=== PATIENT | female | born 1995 | race Caucasian/White ===

== ENCOUNTER 2016-11-06 21:02 | Inpatient (IN) | payer MEDICAID ==
[~2016-11-06 21:02] MED LIST: ACETIC ACID; ACETIC ACID15 M1 IR; ADAPALENE45 G2 TP; ADVIL100 M3 PO; ALLERGY EYE DRO10 M1 OP; ALOE VESTA141 GM; ALOE VESTA141 GM TP; AMOXICILLI400 MG/5 M PO; ANTACID ULTRA1177 MG GT; ANTI-ITCH28 GM TP; APAP160 MG/5 M GT; ARTIFICIAL TEAR15 M3 OP; ATARAX10 MG/5 ML; ATIVAN2 M1 PO; ATIVAN2 MG GT; ATIVAN2 MG/1 ML GB; ATIVAN2 MG/M1 GT; AUGMENTIN SUSP100 M1 GT; AYR SALINE NASA14 GM; BACLOFEN PUMP; BACTRIM DS1 TA1 GT; BACTRIM DS1 TA1 PO; BACTRIM DS1 TAB GT; BACTROBAN TP; BACTROBAN15 GM TP; BACTROBAN22 GM; BACTROBAN22 GM TP; BENADRYL25 MG/10 M GT; BOOST HIGH PRO237 ML GB; BOTOX; CALCIFEROL8000 U/ML GB; CALCIFEROL8000 U/ML GT; CALCIUM CA500 MG/5 M GT; CEFTRIAXONE2 GM IV; CELEBREX100 M1 GB; CELEBREX100 MG; CELEBREX100 MG GT; CELEBREX100 MG PO; CHILD IBUP100 MG/5 M GT; CHILDREN'S100 MG/55 GT; CLARITIN10 M2 GT; CLARITIN5 MG/5 M2 GB; CLARITIN5 MG/5 ML GT; DEPO-PROVE150 MG/1 M IM; DEPO-PROVER150 MG/ML; DEPO-PROVER150 MG/ML IM; DERMOLATE ANTI-I2 GM TP; DEXTROSTAT5 MG; DEXTROSTAT5 MG GT; DIFFERIN TP; ELOCON TP; ELOCON15 GM TP; EMLA TP; EYE ITCH RELIEF EACH EYE; FLEET ENEMA118 ML; FLEET ENEMA118 ML RC; FLEET ENEMA133 ML PR; FURADANTIN GT; GARAMYCIN GB; GARAMYCIN3.5 G1 OP; GARAMYCIN3.5 GM OP; GARAMYCIN5 M2 TOP; GENTAK3.5 G1 OP; GENTAMICIN OINTMENT; GLYCOLAX527 GM; GLYCOPYRROLATE1 M1 GT; HEPARIN FL IV; HEPARIN IV; HEPARIN LO IV; HYDROCORTISONE; HYDROCORTISONE20 GM; ILOTYCIN1 G1 OP; K-PHOS NEUTRAL250 M1 PO; KENALOG TP; KEPPRA500 M3 PO; KETOTIFEN FUMARA5 ML OP; LEVAQUIN500 M1 PO; LIDOCAINE-PRIL1 EACH TP; LIDOCAINE-PRILO30 GM TP; LIORESAL I IT; LIORESAL I500 MCG/ML; LOTRIMIN AF12 GM TP; MAPAP500 MG/15 GB; MIRALAX12 EA GT; MIRALAX17 G1 GT; MIRALAX17 G2 GB; MIRALAX17 G2 GT; MOMETASONE FURO15 GM TP; MOMETASONE FURO45 GM; MONOJECT PREFIL10 M1 IJ; MOTRIN100 MG/5 M; MOTRIN100 MG/5 M GT; MUPIROCIN22 G2 TP; NAPHCON15 ML; NAPHCON15 ML BOTH EYES; NAPHCON15 ML OP; NASAL SPRAY45 ML NS; NYSTATIN15 GM TP; OCEAN SPRAY; OCEAN104 ML; OCEAN45 ML; OCEAN45 ML NS; ONABOTULINUMTOXINA IJ; PAMIDRONATE DISODIUM; PERMETHRIN; PHOS-NAK PAC1 PACKET GT; PHOS-NAK PAC1 PACKET PO; POTASSIUM PHOSPHATE; QVAR8.7 G1 IH; QVAR8.7 G1 INH; ROBINUL FORTE2 M1 GT; ROBINUL1 MG GT; SALINE; SALINE FLUSH; SELSUN BLUE 1%118 ML TP; SELSUN BLUE TP; STOOL SOFT50 MG/5 ML GT; SUDAFED PE SIN1 EACH PO; SUPRAX200 MG/5 M GB; TIZANIDINE HCL4 M2 GB; TRIAMCINOLONE A15 G2 TP; TRIAMCINOLONE A15 GM TP; TRIAMINIC COLD118 M2; TUMS500 MG; TUMS500 MG GT; TYLENOL LI650 MG/20 GT; URECHOLINE10 M1 GT; VIBRAMYCIN100 M1 PO; VITAMIN A; VITAMIN D; VITAMIN D1000 UNI2 GT; VITAMIN D1000 UNI2 PO; VITAMIN D400 UNIT/1 PO; Vitamin D GT; ZADITOR5 M1 OP; ZANAFLEX4 M GT; ZANAFLEX4 M2 GB; ZANAFLEX4 M3 PO; ZANAFLEX4 MG; ZOVIRAX15 GM; ZYRTEC1 MG/ML GT; [UNRECOGNIZED DRUG - CODE]; [UNRECOGNIZED DRUG - CODE]; [UNRECOGNIZED DRUG - CODE] GT; [UNRECOGNIZED DRUG - CODE] IM; [UNRECOGNIZED DRUG - CODE] TP; [UNRECOGNIZED DRUG - OTHER]; [UNRECOGNIZED DRUG - OTHER]; [UNRECOGNIZED DRUG - OTHER]; [UNRECOGNIZED DRUG - OTHER]; [UNRECOGNIZED DRUG - OTHER]; [UNRECOGNIZED DRUG - OTHER]; [UNRECOGNIZED DRUG - OTHER]; [UNRECOGNIZED DRUG - OTHER]; [UNRECOGNIZED DRUG - OTHER]; [UNRECOGNIZED DRUG - OTHER]; [UNRECOGNIZED DRUG - OTHER] EXT; [UNRECOGNIZED DRUG - OTHER] GT; [UNRECOGNIZED DRUG - OTHER] GT; [UNRECOGNIZED DRUG - OTHER] GT; [UNRECOGNIZED DRUG - OTHER] GT; [UNRECOGNIZED DRUG - OTHER] GT; [UNRECOGNIZED DRUG - OTHER] GT; [UNRECOGNIZED DRUG - OTHER] IV; [UNRECOGNIZED DRUG - OTHER] IV; [UNRECOGNIZED DRUG - OTHER] IV; [UNRECOGNIZED DRUG - OTHER] IV; [UNRECOGNIZED DRUG - OTHER] PO; [UNRECOGNIZED DRUG - OTHER] TP; [UNRECOGNIZED DRUG - OTHER] TP
[2016-11-06 22:37] LABS: BASO % 0.1 % (0-2); HGB-HEMOGLOBIN 10.6 gm/dl (12.0-15.5); IMMATURE GRANULOCYTES ABSOLUTE 0.06 tho/cmm (0-0.03); IMMATURE GRANULOCYTES PERCENT 0.3 % (0-0.3); LYMPH % 10.3 % (20-45); MCH (MEAN CORPUSCULAR HGB) 31.5 pg (28.0-32.0); MCHC MEAN CORPUSCULAR HGB CONC 35.3 % (32.0-36.0); MCV (MEAN CELL VOLUME) 89.3 fl (82.0-96.0); MEAN PLATELET VOLUME 10.4 cmc (9.4-12.4); MONO % 5.6 % (0-12); MONOCYTE ABSOLUTE COUNT 1.1 tho/cmm (0.0-1.2); NEUTROPHIL ABSOLUTE COUNT 15.9 tho/cmm (1.6-8.0); NEUTROPHIL-AUTOMATED 15.9 tho/cmm (1.6-8.0); NEUTROPHILS % 83.7 % (40-80); PLATELET COUNT 360 tho/cmm (150-450); RED BLOOD COUNT 3.36 mil/cmm (4.00-5.20); RED CELL DISTRIBUTION WIDTH 15.3 % (12.4-16.4)
[2016-11-06 22:58] LABS: ALB/GLOB RATIO 0.7 (0.8-2.0); ALBUMIN 3.6 g/dl (3.5-5.0); ALKALINE PHOSPHATASE 151 U/L (33-138); ALT/SGPT 18 U/L (12-78); ANION GAP 18 mmol/L (0-20); AST/SGOT 49 U/L (10-40); BILIRUBIN,TOTAL 0.7 mg/dl (0-1.5); BLOOD UREA NITROGEN 12 mg/dl (6-24); CALCIUM 9.5 mg/dl (8.5-10.5); CARBON DIOXIDE-VENOUS 20 mmol/L (22-32); CHLORIDE 95 mmol/l (96-110); CREATININE 0.42 mg/dl (0.50-1.10); GLUCOSE 100 mg/dL (70-110); POTASSIUM 4.6 mmol/L (3.7-5.1); SODIUM 128 mmol/L (135-145); eGFR VALUE FOR BLACK >90 mL/Min
[2016-11-06 23:00] LABS: URINE BILIRUBIN NEGATIVE (NEG); URINE BLOOD MODERATE (NEG); URINE GLUCOSE (UA) NEGATIVE (NEG); URINE KETONE SMALL (NEG); URINE LEUKOCYTE ESTERASE POSITIVE (NEG); URINE NITRITE NEGATIVE (NEG); URINE PROTEIN MODERATE (NEG)
[2016-11-06 23:02] LABS: URINE APPEARANCE CLOUDY; URINE COLOR YELLOW
[2016-11-06 23:08] LABS: URINE AMORPHOUS 1+; URINE BACTERIA 4+; URINE EPITHELIAL CELLS 0 /[HPF] (0-10); URINE WBC FULL FIELD /[HPF] (0-5)
[2016-11-06] MEDS ORDERED: [UNRECOGNIZED DRUG - CODE] GB (23:08)
[2016-11-06] MEDS ORDERED: SINEMET 25-1001 EAC1 GB (23:09)
[2016-11-06 23:54] LABS: PROCALCITONIN 0.53 ng/ml (0.05-0.09)
[2016-11-07 04:44] LABS: INR 1.2 INR (0.9-1.1); PROTHROMBIN TIME 14.4 SECONDS (9.0-13.6)
[2016-11-07 05:20] LABS: URINE SODIUM-RANDOM 162 mmol/L (20-110)
[2016-11-07 05:59] LABS: HCT-HEMATOCRIT 28.4 % (34.0-49.0); IMMATURE GRANULOCYTES ABSOLUTE 0.03 tho/cmm (0-0.03); IMMATURE GRANULOCYTES PERCENT 0.2 % (0-0.3); LYMPH % 15.5 % (20-45); MCH (MEAN CORPUSCULAR HGB) 31.1 pg (28.0-32.0); MCHC MEAN CORPUSCULAR HGB CONC 35.2 % (32.0-36.0); MCV (MEAN CELL VOLUME) 88.2 fl (82.0-96.0); MEAN PLATELET VOLUME 10.1 cmc (9.4-12.4); MONO % 7.6 % (0-12); NEUTROPHIL ABSOLUTE COUNT 9.7 tho/cmm (1.6-8.0); NEUTROPHIL-AUTOMATED 9.7 tho/cmm (1.6-8.0); NEUTROPHILS % 76.7 % (40-80); PLATELET COUNT 283 tho/cmm (150-450); RED BLOOD COUNT 3.22 mil/cmm (4.00-5.20); RED CELL DISTRIBUTION WIDTH 15.2 % (12.4-16.4); WHITE BLOOD COUNT 12.7 tho/cmm (4.0-10.0)
[2016-11-07 06:11] LABS: ANION GAP 13 mmol/L (0-20); BLOOD UREA NITROGEN 6 mg/dl (6-24); C-REACTIVE PROTEIN 8.7 mg/dl (0-0.9); CARBON DIOXIDE-VENOUS 22 mmol/L (22-32); CHLORIDE 95 mmol/l (96-110); GLUCOSE 72 mg/dL (70-110); SODIUM 127 mmol/L (135-145); eGFR VALUE FOR BLACK >90 mL/Min
[2016-11-07 06:18] LABS: POTASSIUM 3.4 mmol/L (3.7-5.1)
[2016-11-07 07:07] LABS: ESR-ERYTHROCYTE SED RATE 64 mm/hr (0-20)
[2016-11-08 04:03] LABS: BASO % 0.1 % (0-2); EOS % 0.7 % (0-7); EOSINOPHIL ABSOLUTE COUNT 0.1 tho/cmm (0.0-0.7); HCT-HEMATOCRIT 29.3 % (34.0-49.0); HGB-HEMOGLOBIN 10.4 gm/dl (12.0-15.5); IMMATURE GRANULOCYTES ABSOLUTE 0.14 tho/cmm (0-0.03); IMMATURE GRANULOCYTES PERCENT 1.1 % (0-0.3); MCH (MEAN CORPUSCULAR HGB) 30.9 pg (28.0-32.0); MCHC MEAN CORPUSCULAR HGB CONC 35.5 % (32.0-36.0); MCV (MEAN CELL VOLUME) 86.9 fl (82.0-96.0); MEAN PLATELET VOLUME 9.8 cmc (9.4-12.4); MONO % 10.5 % (0-12); MONOCYTE ABSOLUTE COUNT 1.3 tho/cmm (0.0-1.2); NEUTROPHIL ABSOLUTE COUNT 6.7 tho/cmm (1.6-8.0); NEUTROPHIL-AUTOMATED 6.7 tho/cmm (1.6-8.0); NEUTROPHILS % 54.6 % (40-80); PLATELET COUNT 299 tho/cmm (150-450); RED BLOOD COUNT 3.37 mil/cmm (4.00-5.20); RED CELL DISTRIBUTION WIDTH 14.6 % (12.4-16.4); WHITE BLOOD COUNT 12.2 tho/cmm (4.0-10.0)
[2016-11-08 04:27] LABS: ALB/GLOB RATIO 0.7 (0.8-2.0); ALBUMIN 3.1 g/dl (3.5-5.0); ALKALINE PHOSPHATASE 118 U/L (33-138); ALT/SGPT 26 U/L (12-78); ANION GAP 16 mmol/L (0-20); AST/SGOT 42 U/L (10-40); BILIRUBIN,TOTAL 0.5 mg/dl (0-1.5); BLOOD UREA NITROGEN 3 mg/dl (6-24); CALCIUM 8.3 mg/dl (8.5-10.5); CARBON DIOXIDE-VENOUS 20 mmol/L (22-32); CHLORIDE 94 mmol/l (96-110); CREATININE 0.21 mg/dl (0.50-1.10); POTASSIUM 3.5 mmol/L (3.7-5.1); SODIUM 126 mmol/L (135-145); eGFR VALUE FOR BLACK >90 mL/Min
[2016-11-08 04:30] LABS: GLUCOSE 70 mg/dL (70-110)
[2016-11-08 08:11] LABS: ABG CO2 ARTERIAL 19 mmol/L (21-27); ARTERIAL BLD GAS O2 SATURATION 96 % (95-98); ARTERIAL BLOOD GAS PCO2 30 mmHg (32-45); ARTERIAL PO2 77 mmHg (70-100); BICARBONATE 18 mmol/L (21-28); BLOOD GAS BASE EXCESS -6 mM/L (-/+3); PH 7.39 Units (7.35-7.45)
[2016-11-09 05:46] LABS: BASO % 0.1 % (0-2); EOS % 0.4 % (0-7); EOSINOPHIL ABSOLUTE COUNT 0.1 tho/cmm (0.0-0.7); HGB-HEMOGLOBIN 10.7 gm/dl (12.0-15.5); IMMATURE GRANULOCYTES ABSOLUTE 0.09 tho/cmm (0-0.03); IMMATURE GRANULOCYTES PERCENT 0.7 % (0-0.3); LYMPH % 27.8 % (20-45); LYMPH ABSOLUTE COUNT 3.5 tho/cmm (0.8-4.5); MCH (MEAN CORPUSCULAR HGB) 30.9 pg (28.0-32.0); MCHC MEAN CORPUSCULAR HGB CONC 35.7 % (32.0-36.0); MCV (MEAN CELL VOLUME) 86.7 fl (82.0-96.0); MEAN PLATELET VOLUME 9.4 cmc (9.4-12.4); MONO % 10.3 % (0-12); MONOCYTE ABSOLUTE COUNT 1.3 tho/cmm (0.0-1.2); NEUTROPHIL ABSOLUTE COUNT 7.6 tho/cmm (1.6-8.0); NEUTROPHIL-AUTOMATED 7.6 tho/cmm (1.6-8.0); NEUTROPHILS % 60.7 % (40-80); PLATELET COUNT 391 tho/cmm (150-450); RED BLOOD COUNT 3.46 mil/cmm (4.00-5.20); RED CELL DISTRIBUTION WIDTH 14.8 % (12.4-16.4); WHITE BLOOD COUNT 12.5 tho/cmm (4.0-10.0)
[2016-11-09 06:06] LABS: ANION GAP 13 mmol/L (0-20); BLOOD UREA NITROGEN 3 mg/dl (6-24); CALCIUM 8.3 mg/dl (8.5-10.5); CARBON DIOXIDE-VENOUS 21 mmol/L (22-32); CHLORIDE 96 mmol/l (96-110); GLUCOSE 95 mg/dL (70-110); SODIUM 127 mmol/L (135-145); eGFR VALUE FOR BLACK >90 mL/Min
[2016-11-10 05:17] LABS: BASO % 0.1 % (0-2); EOS % 0.9 % (0-7); EOSINOPHIL ABSOLUTE COUNT 0.1 tho/cmm (0.0-0.7); HCT-HEMATOCRIT 30.3 % (34.0-49.0); IMMATURE GRANULOCYTES ABSOLUTE 0.17 tho/cmm (0-0.03); IMMATURE GRANULOCYTES PERCENT 1.7 % (0-0.3); LYMPH % 33.8 % (20-45); LYMPH ABSOLUTE COUNT 3.4 tho/cmm (0.8-4.5); MCH (MEAN CORPUSCULAR HGB) 30.9 pg (28.0-32.0); MCHC MEAN CORPUSCULAR HGB CONC 36.3 % (32.0-36.0); MCV (MEAN CELL VOLUME) 85.1 fl (82.0-96.0); MEAN PLATELET VOLUME 9.5 cmc (9.4-12.4); MONO % 14.9 % (0-12); MONOCYTE ABSOLUTE COUNT 1.5 tho/cmm (0.0-1.2); NEUTROPHIL ABSOLUTE COUNT 4.8 tho/cmm (1.6-8.0); NEUTROPHIL-AUTOMATED 4.8 tho/cmm (1.6-8.0); NEUTROPHILS % 48.6 % (40-80); PLATELET COUNT 471 tho/cmm (150-450); RED BLOOD COUNT 3.56 mil/cmm (4.00-5.20); RED CELL DISTRIBUTION WIDTH 14.5 % (12.4-16.4); WHITE BLOOD COUNT 9.9 tho/cmm (4.0-10.0)
[2016-11-10 05:30] LABS: ANION GAP 12 mmol/L (0-20); BLOOD UREA NITROGEN 11 mg/dl (6-24); CALCIUM 8.3 mg/dl (8.5-10.5); CARBON DIOXIDE-VENOUS 24 mmol/L (22-32); CHLORIDE 95 mmol/l (96-110); CREATININE 0.33 mg/dl (0.50-1.10); GLUCOSE 130 mg/dL (70-110); SODIUM 129 mmol/L (135-145); eGFR VALUE FOR BLACK >90 mL/Min
[2016-11-10 06:15] LABS: POTASSIUM 2.2 mmol/L (3.7-5.1)
[2016-11-11 04:36] LABS: BASO % 0.2 % (0-2); EOS % 2.8 % (0-7); EOSINOPHIL ABSOLUTE COUNT 0.4 tho/cmm (0.0-0.7); HCT-HEMATOCRIT 26.8 % (34.0-49.0); HGB-HEMOGLOBIN 9.5 gm/dl (12.0-15.5); IMMATURE GRANULOCYTES ABSOLUTE 0.44 tho/cmm (0-0.03); IMMATURE GRANULOCYTES PERCENT 3.6 % (0-0.3); LYMPH ABSOLUTE COUNT 4.2 tho/cmm (0.8-4.5); MCH (MEAN CORPUSCULAR HGB) 31.1 pg (28.0-32.0); MCHC MEAN CORPUSCULAR HGB CONC 35.4 % (32.0-36.0); MCV (MEAN CELL VOLUME) 87.9 fl (82.0-96.0); MEAN PLATELET VOLUME 9.4 cmc (9.4-12.4); MONO % 12.9 % (0-12); MONOCYTE ABSOLUTE COUNT 1.6 tho/cmm (0.0-1.2); NEUTROPHIL ABSOLUTE COUNT 5.7 tho/cmm (1.6-8.0); NEUTROPHIL-AUTOMATED 5.7 tho/cmm (1.6-8.0); NEUTROPHILS % 46.5 % (40-80); PLATELET COUNT 455 tho/cmm (150-450); RED BLOOD COUNT 3.05 mil/cmm (4.00-5.20); RED CELL DISTRIBUTION WIDTH 15.3 % (12.4-16.4); WHITE BLOOD COUNT 12.3 tho/cmm (4.0-10.0)
[2016-11-11 05:17] LABS: ANION GAP 13 mmol/L (0-20); BLOOD UREA NITROGEN 17 mg/dl (6-24); CALCIUM 7.9 mg/dl (8.5-10.5); CARBON DIOXIDE-VENOUS 21 mmol/L (22-32); CHLORIDE 105 mmol/l (96-110); CREATININE 0.34 mg/dl (0.50-1.10); GLUCOSE 110 mg/dL (70-110); SODIUM 133 mmol/L (135-145); eGFR VALUE FOR BLACK >90 mL/Min
[2016-11-11 05:26] LABS: POTASSIUM 5.7 mmol/L (3.7-5.1)
[2016-11-12 04:35] LABS: BASO % 0.1 % (0-2); EOS % 2.4 % (0-7); HCT-HEMATOCRIT 26.7 % (34.0-49.0); HGB-HEMOGLOBIN 9.4 gm/dl (12.0-15.5); IMMATURE GRANULOCYTES ABSOLUTE 0.32 tho/cmm (0-0.03); IMMATURE GRANULOCYTES PERCENT 2.3 % (0-0.3); LYMPH % 35.1 % (20-45); MCH (MEAN CORPUSCULAR HGB) 31.1 pg (28.0-32.0); MCHC MEAN CORPUSCULAR HGB CONC 35.2 % (32.0-36.0); MCV (MEAN CELL VOLUME) 88.4 fl (82.0-96.0); MEAN PLATELET VOLUME 9.2 cmc (9.4-12.4); MONO % 9.9 % (0-12); NEUTROPHIL ABSOLUTE COUNT 7.1 tho/cmm (1.6-8.0); NEUTROPHIL-AUTOMATED 7.1 tho/cmm (1.6-8.0); NEUTROPHILS % 50.2 % (40-80); PLATELET COUNT 595 tho/cmm (150-450); RED BLOOD COUNT 3.02 mil/cmm (4.00-5.20); WHITE BLOOD COUNT 14.1 tho/cmm (4.0-10.0)
[2016-11-12 04:36] LABS: EOSINOPHIL ABSOLUTE COUNT 0.3 tho/cmm (0.0-0.7); MONOCYTE ABSOLUTE COUNT 1.4 tho/cmm (0.0-1.2)
[2016-11-12 09:11] LABS: ALB/GLOB RATIO 0.9 (0.8-2.0); ALBUMIN 3.1 g/dl (3.5-5.0); ALKALINE PHOSPHATASE 90 U/L (33-138); ALT/SGPT 51 U/L (12-78); ANION GAP 12 mmol/L (0-20); AST/SGOT 41 U/L (10-40); BILIRUBIN,TOTAL 0.4 mg/dl (0-1.5); BLOOD UREA NITROGEN 17 mg/dl (6-24); CALCIUM 7.7 mg/dl (8.5-10.5); CARBON DIOXIDE-VENOUS 22 mmol/L (22-32); CHLORIDE 105 mmol/l (96-110); CREATININE 0.22 mg/dl (0.50-1.10); GLUCOSE 100 mg/dL (70-110); SODIUM 135 mmol/L (135-145); eGFR VALUE FOR BLACK >90 mL/Min
[2016-11-12 09:12] LABS: POTASSIUM 3.8 mmol/L (3.7-5.1)
[2016-11-12 09:17] LABS: MAGNESIUM 2.1 mg/dl (1.3-2.6)
[2016-11-12 09:23] LABS: PHOSPHOROUS 0.8 mg/dl (2.5-4.9)
[2016-11-12 10:08] LABS: ABG CO2 ARTERIAL 22 mmol/L (21-27); ARTERIAL BLD GAS O2 SATURATION 98 % (95-98); ARTERIAL BLOOD GAS PCO2 33 mmHg (32-45); ARTERIAL PO2 78 mmHg (70-100); BICARBONATE 21 mmol/L (21-28); BLOOD GAS BASE EXCESS -3 mM/L (-/+3); PH 7.42 Units (7.35-7.45)
--- NOTE | 2016-11-12 11:01 | NUR ---
11/12/16 @ 1100: MOTHER OF PATIENT OK'D THAT WE INSERT FLEXISEAL, EVEN THOUGHT PT IS ALLERGIC TO LATEX. 25MG OF BENEDRYL GIVEN TO PATIENT IV PROPHALATICALLY. WILL ASSESS Q30MIN FOR BLISTERING AND REDNESS. PATIENT TOLERATED INSERTION OF FLEXISEAL. OK'D WITH DR. NUNEZ TO PLACE FLEXI WITH ALLERGY. IKE HUGHES RN
[2016-11-13 04:50] LABS: ANION GAP 11 mmol/L (0-20); BLOOD UREA NITROGEN 7 mg/dl (6-24); CALCIUM 7.4 mg/dl (8.5-10.5); CARBON DIOXIDE-VENOUS 23 mmol/L (22-32); CHLORIDE 101 mmol/l (96-110); CREATININE 0.22 mg/dl (0.50-1.10); GLUCOSE 114 mg/dL (70-110); MAGNESIUM 1.8 mg/dl (1.3-2.6); PHOSPHOROUS 1.4 mg/dl (2.5-4.9); POTASSIUM 3.3 mmol/L (3.7-5.1); SODIUM 132 mmol/L (135-145); eGFR VALUE FOR BLACK >90 mL/Min
[2016-11-13 21:58] LABS: PHOSPHOROUS 1.1 mg/dl (2.5-4.9); POTASSIUM 3.5 mmol/L (3.7-5.1)
[2016-11-14 05:14] LABS: BASO % 0.2 % (0-2); EOS % 3.4 % (0-7); EOSINOPHIL ABSOLUTE COUNT 0.3 tho/cmm (0.0-0.7); HGB-HEMOGLOBIN 7.7 gm/dl (12.0-15.5); IMMATURE GRANULOCYTES PERCENT 1.1 % (0-0.3); LYMPH % 41.8 % (20-45); LYMPH ABSOLUTE COUNT 3.7 tho/cmm (0.8-4.5); MCH (MEAN CORPUSCULAR HGB) 31.6 pg (28.0-32.0); MCHC MEAN CORPUSCULAR HGB CONC 34.8 % (32.0-36.0); MCV (MEAN CELL VOLUME) 90.6 fl (82.0-96.0); MEAN PLATELET VOLUME 8.8 cmc (9.4-12.4); MONO % 10.3 % (0-12); MONOCYTE ABSOLUTE COUNT 0.9 tho/cmm (0.0-1.2); NEUTROPHIL ABSOLUTE COUNT 3.8 tho/cmm (1.6-8.0); NEUTROPHIL-AUTOMATED 3.8 tho/cmm (1.6-8.0); NEUTROPHILS % 43.2 % (40-80); PLATELET COUNT 665 tho/cmm (150-450); RED BLOOD COUNT 2.44 mil/cmm (4.00-5.20); RED CELL DISTRIBUTION WIDTH 17.2 % (12.4-16.4); WHITE BLOOD COUNT 8.8 tho/cmm (4.0-10.0)
[2016-11-14 05:18] LABS: HCT-HEMATOCRIT 22.1 % (34.0-49.0)
[2016-11-14 05:23] LABS: ANION GAP 10 mmol/L (0-20); BLOOD UREA NITROGEN 6 mg/dl (6-24); CALCIUM 7.6 mg/dl (8.5-10.5); CARBON DIOXIDE-VENOUS 26 mmol/L (22-32); CHLORIDE 104 mmol/l (96-110); GLUCOSE 100 mg/dL (70-110); MAGNESIUM 2.4 mg/dl (1.3-2.6); PHOSPHOROUS 2.6 mg/dl (2.5-4.9); POTASSIUM 3.9 mmol/L (3.7-5.1); SODIUM 136 mmol/L (135-145)
[2016-11-14 05:29] LABS: CREATININE <0.20 mg/dl (0.50-1.10); eGFR VALUE FOR BLACK >90 mL/Min
[2016-11-15 06:00] LABS: BASO % 0.3 % (0-2); EOS % 2.7 % (0-7); EOSINOPHIL ABSOLUTE COUNT 0.3 tho/cmm (0.0-0.7); HGB-HEMOGLOBIN 7.2 gm/dl (12.0-15.5); IMMATURE GRANULOCYTES ABSOLUTE 0.06 tho/cmm (0-0.03); IMMATURE GRANULOCYTES PERCENT 0.6 % (0-0.3); LYMPH % 34.2 % (20-45); LYMPH ABSOLUTE COUNT 3.4 tho/cmm (0.8-4.5); MCH (MEAN CORPUSCULAR HGB) 31.6 pg (28.0-32.0); MCHC MEAN CORPUSCULAR HGB CONC 34.6 % (32.0-36.0); MCV (MEAN CELL VOLUME) 91.2 fl (82.0-96.0); MEAN PLATELET VOLUME 8.7 cmc (9.4-12.4); MONO % 9.3 % (0-12); MONOCYTE ABSOLUTE COUNT 0.9 tho/cmm (0.0-1.2); NEUTROPHIL ABSOLUTE COUNT 5.2 tho/cmm (1.6-8.0); NEUTROPHIL-AUTOMATED 5.2 tho/cmm (1.6-8.0); NEUTROPHILS % 52.9 % (40-80); PLATELET COUNT 698 tho/cmm (150-450); RED BLOOD COUNT 2.28 mil/cmm (4.00-5.20); RED CELL DISTRIBUTION WIDTH 18.2 % (12.4-16.4); WHITE BLOOD COUNT 9.9 tho/cmm (4.0-10.0)
[2016-11-15 06:07] LABS: HCT-HEMATOCRIT 20.8 % (34.0-49.0)
[2016-11-15 06:15] LABS: ANION GAP 9 mmol/L (0-20); BLOOD UREA NITROGEN 6 mg/dl (6-24); CARBON DIOXIDE-VENOUS 25 mmol/L (22-32); CHLORIDE 102 mmol/l (96-110); GLUCOSE 99 mg/dL (70-110); MAGNESIUM 1.9 mg/dl (1.3-2.6); PHOSPHOROUS 2.5 mg/dl (2.5-4.9); POTASSIUM 4.3 mmol/L (3.7-5.1); SODIUM 132 mmol/L (135-145)
[2016-11-15 06:21] LABS: CREATININE <0.20 mg/dl (0.50-1.10); eGFR VALUE FOR BLACK >90 mL/Min
[2016-11-15 15:19] LABS: IRON 30 ug/dl (37-170); IRON BINDING CAPACITY 261 ug/dl (250-450)
[2016-11-16 03:44] LABS: BASO % 0.3 % (0-2); EOS % 2.1 % (0-7); EOSINOPHIL ABSOLUTE COUNT 0.2 tho/cmm (0.0-0.7); IMMATURE GRANULOCYTES ABSOLUTE 0.06 tho/cmm (0-0.03); IMMATURE GRANULOCYTES PERCENT 0.6 % (0-0.3); LYMPH % 31.3 % (20-45); LYMPH ABSOLUTE COUNT 3.4 tho/cmm (0.8-4.5); MCV (MEAN CELL VOLUME) 87.8 fl (82.0-96.0); MEAN PLATELET VOLUME 8.9 cmc (9.4-12.4); MONO % 10.9 % (0-12); MONOCYTE ABSOLUTE COUNT 1.2 tho/cmm (0.0-1.2); NEUTROPHIL ABSOLUTE COUNT 5.9 tho/cmm (1.6-8.0); NEUTROPHIL-AUTOMATED 5.9 tho/cmm (1.6-8.0); NEUTROPHILS % 54.8 % (40-80); PLATELET COUNT 810 tho/cmm (150-450); RED CELL DISTRIBUTION WIDTH 18.1 % (12.4-16.4); WHITE BLOOD COUNT 10.7 tho/cmm (4.0-10.0)
[2016-11-16 04:07] LABS: HCT-HEMATOCRIT 31.8 % (34.0-49.0); HGB-HEMOGLOBIN 11.1 gm/dl (12.0-15.5); MCH (MEAN CORPUSCULAR HGB) 30.6 pg (28.0-32.0); MCHC MEAN CORPUSCULAR HGB CONC 34.9 % (32.0-36.0); RED BLOOD COUNT 3.62 mil/cmm (4.00-5.20)
[2016-11-17 04:35] LABS: BASO % 0.1 % (0-2); EOS % 0.7 % (0-7); EOSINOPHIL ABSOLUTE COUNT 0.1 tho/cmm (0.0-0.7); HCT-HEMATOCRIT 30.4 % (34.0-49.0); HGB-HEMOGLOBIN 10.4 gm/dl (12.0-15.5); IMMATURE GRANULOCYTES ABSOLUTE 0.04 tho/cmm (0-0.03); IMMATURE GRANULOCYTES PERCENT 0.3 % (0-0.3); LYMPH % 17.8 % (20-45); LYMPH ABSOLUTE COUNT 2.6 tho/cmm (0.8-4.5); MCH (MEAN CORPUSCULAR HGB) 30.5 pg (28.0-32.0); MCHC MEAN CORPUSCULAR HGB CONC 34.2 % (32.0-36.0); MCV (MEAN CELL VOLUME) 89.1 fl (82.0-96.0); MEAN PLATELET VOLUME 8.8 cmc (9.4-12.4); MONOCYTE ABSOLUTE COUNT 1.4 tho/cmm (0.0-1.2); NEUTROPHIL ABSOLUTE COUNT 10.3 tho/cmm (1.6-8.0); NEUTROPHIL-AUTOMATED 10.3 tho/cmm (1.6-8.0); NEUTROPHILS % 71.1 % (40-80); PLATELET COUNT 828 tho/cmm (150-450); RED BLOOD COUNT 3.41 mil/cmm (4.00-5.20); RED CELL DISTRIBUTION WIDTH 18.5 % (12.4-16.4); WHITE BLOOD COUNT 14.4 tho/cmm (4.0-10.0)
[2016-11-17 04:43] LABS: ANION GAP 12 mmol/L (0-20); BLOOD UREA NITROGEN 7 mg/dl (6-24); CALCIUM 8.5 mg/dl (8.5-10.5); CARBON DIOXIDE-VENOUS 26 mmol/L (22-32); CHLORIDE 99 mmol/l (96-110); GLUCOSE 85 mg/dL (70-110); SODIUM 133 mmol/L (135-145); eGFR VALUE FOR BLACK >90 mL/Min
[2016-11-17 04:53] LABS: CREATININE 0.19 mg/dl (0.50-1.10)
[2016-11-17 15:51] LABS: URINE BILIRUBIN NEGATIVE (NEG); URINE BLOOD NEGATIVE (NEG); URINE GLUCOSE (UA) NEGATIVE (NEG); URINE KETONE NEGATIVE (NEG); URINE LEUKOCYTE ESTERASE NEGATIVE (NEG); URINE NITRITE NEGATIVE (NEG); URINE PROTEIN NEGATIVE (NEG)
[2016-11-17 15:54] LABS: URINE APPEARANCE HAZY; URINE COLOR PALE YELLOW
[2016-11-17 16:10] LABS: URINE EPITHELIAL CELLS 0-4 /[HPF] (0-10); URINE RBC 0 /[HPF] (0-5); URINE WBC 0-1 /[HPF] (0-5)
[2016-11-17 16:11] LABS: URINE AMORPHOUS 2+
[2016-11-18 05:36] LABS: BASO % 0.2 % (0-2); EOS % 1.1 % (0-7); EOSINOPHIL ABSOLUTE COUNT 0.1 tho/cmm (0.0-0.7); HCT-HEMATOCRIT 32.1 % (34.0-49.0); HGB-HEMOGLOBIN 10.9 gm/dl (12.0-15.5); IMMATURE GRANULOCYTES ABSOLUTE 0.03 tho/cmm (0-0.03); IMMATURE GRANULOCYTES PERCENT 0.3 % (0-0.3); LYMPH % 22.5 % (20-45); LYMPH ABSOLUTE COUNT 2.4 tho/cmm (0.8-4.5); MCH (MEAN CORPUSCULAR HGB) 30.7 pg (28.0-32.0); MCV (MEAN CELL VOLUME) 90.4 fl (82.0-96.0); MEAN PLATELET VOLUME 8.8 cmc (9.4-12.4); MONO % 12.4 % (0-12); MONOCYTE ABSOLUTE COUNT 1.3 tho/cmm (0.0-1.2); NEUTROPHIL ABSOLUTE COUNT 6.6 tho/cmm (1.6-8.0); NEUTROPHIL-AUTOMATED 6.6 tho/cmm (1.6-8.0); NEUTROPHILS % 63.5 % (40-80); PLATELET COUNT 894 tho/cmm (150-450); RED BLOOD COUNT 3.55 mil/cmm (4.00-5.20); RED CELL DISTRIBUTION WIDTH 18.2 % (12.4-16.4); WHITE BLOOD COUNT 10.5 tho/cmm (4.0-10.0)
[2016-11-19 10:57] LABS: BASO % 0.1 % (0-2); EOS % 1.5 % (0-7); EOSINOPHIL ABSOLUTE COUNT 0.1 tho/cmm (0.0-0.7); HCT-HEMATOCRIT 31.2 % (34.0-49.0); HGB-HEMOGLOBIN 10.6 gm/dl (12.0-15.5); IMMATURE GRANULOCYTES ABSOLUTE 0.03 tho/cmm (0-0.03); IMMATURE GRANULOCYTES PERCENT 0.4 % (0-0.3); LYMPH % 26.2 % (20-45); LYMPH ABSOLUTE COUNT 2.1 tho/cmm (0.8-4.5); MCH (MEAN CORPUSCULAR HGB) 30.5 pg (28.0-32.0); MCV (MEAN CELL VOLUME) 89.9 fl (82.0-96.0); MEAN PLATELET VOLUME 8.7 cmc (9.4-12.4); MONO % 10.9 % (0-12); MONOCYTE ABSOLUTE COUNT 0.9 tho/cmm (0.0-1.2); NEUTROPHIL ABSOLUTE COUNT 4.8 tho/cmm (1.6-8.0); NEUTROPHIL-AUTOMATED 4.8 tho/cmm (1.6-8.0); NEUTROPHILS % 60.9 % (40-80); PLATELET COUNT 885 tho/cmm (150-450); RED BLOOD COUNT 3.47 mil/cmm (4.00-5.20); RED CELL DISTRIBUTION WIDTH 17.9 % (12.4-16.4); WHITE BLOOD COUNT 7.8 tho/cmm (4.0-10.0)
[2016-11-19] MEDS ORDERED: VANCOMYCIN125 MG/2.1 GT (11:44)
[2016-11-19] MEDS ORDERED: OMEPRAZOLE40 M2 PO (11:45)
[2017-01-28] MEDS ORDERED: [UNRECOGNIZED DRUG - OTHER] IRB (12:46)
[2017-01-28] MEDS ORDERED: ULTRAM50 M1 GB (12:47)
[2017-01-28] MEDS ORDERED: VITAMIN C500 M3 GB (12:47)
[2017-01-28] MEDS ORDERED: VITAMIN D31000 UNI3 GB (12:48)
[2017-01-28] MEDS ORDERED: GLYCOPYRROLATE PO (12:50)
[2017-01-28] MEDS ORDERED: CHILDREN'S50 MG/1.21 GB (13:01)
[2017-01-28] MEDS ORDERED: OCEAN104 ML (13:03)
[2017-01-28] MEDS ORDERED: OXYGEN INH (13:03)
[2017-02-01] MEDS ORDERED: [UNRECOGNIZED DRUG - OTHER] IRB (09:20)
[2017-02-01] MEDS ORDERED: GLYCOPYRROLATE PO (09:26)
[2017-02-01] MEDS ORDERED: ALOE VERA170 GM TOP (09:37)
[2017-02-01] MEDS ORDERED: ULTRAM50 M1 PO (14:27)
[2017-02-01] MEDS ORDERED: FLAGYL250 M1 GT (14:29)
[2017-02-01] MEDS ORDERED: BACLOFEN10 M1 GT (14:30)
[2017-02-01] MEDS ORDERED: SINEMET 25-1001 EAC1 GT (14:35)
== END 2016-11-19 15:02 | disposition home health service (06) | DRG 698 ==
LOC: EDMED 21:02 → EMR2 23:59 → CCU 11-07 02:15
PROVIDERS: Emergency Medicine; Family Medicine; Internal Medicine Cardiovascular Disease; Internal Medicine Critical Care Medicine; Internal Medicine Pulmonary Disease; Physician Assistant; ADMIT Hospitalist
PROC: 0DJ08ZZ Inspection of Upper Intestinal Tract, Via Natural or Artificial Opening Endoscopic (ICD-10-PCS; principal; 2016-11-16)
PROC: 0T2BX0Z Change Drainage Device in Bladder, External Approach (ICD-10-PCS; 2016-11-19)
DX: T83.518A Infection and inflammatory reaction due to other urinary catheter, initial encounter (principal); A41.9 Sepsis, unspecified organism; A04.7 Enterocolitis due to Clostridium difficile; E87.1 Hypo-osmolality and hyponatremia; N31.9 Neuromuscular dysfunction of bladder, unspecified; K59.2 Neurogenic bowel, not elsewhere classified; D62 Acute posthemorrhagic anemia; G80.8 Other cerebral palsy; K25.9 Gastric ulcer, unspecified as acute or chronic, without hemorrhage or perforation; T39.395A Adverse effect of other nonsteroidal anti-inflammatory drugs [NSAID], initial encounter; D47.3 Essential (hemorrhagic) thrombocythemia; B96.5 Pseudomonas (aeruginosa) (mallei) (pseudomallei) as the cause of diseases classified elsewhere; B96.89 Other specified bacterial agents as the cause of diseases classified elsewhere; M41.9 Scoliosis, unspecified; G40.909 Epilepsy, unspecified, not intractable, without status epilepticus; Z93.1 Gastrostomy status; Z88.1 Allergy status to other antibiotic agents; Z91.040 Latex allergy status; M85.80 Other specified disorders of bone density and structure, unspecified site; E87.6 Hypokalemia; K80.20 Calculus of gallbladder without cholecystitis without obstruction; N20.0 Calculus of kidney; D63.1 Anemia in chronic kidney disease; K59.00 Constipation, unspecified; B37.2 Candidiasis of skin and nail
CPT/HCPCS: C9113; J0692; J0696; J1200; J1642; J1644; J1956; J2060; J2543; J3260; J3370; J3475; J3480; J7030; J7040; J7050; J7999; P9016; Q9967